=== PATIENT | male | born 1995 | race Two or more races ===

== ENCOUNTER 2016-09-23 14:41 | Emergency (ER) | payer OTHER ==
[~2016-09-23] VITALS: Ht 177.8 cm; Wt 111.8 kg
[2016-09-23 15:47] LABS: HEMATOCRIT 43.5 % (38.0-50.0); MCH 28.8 PG (29.0-34.0); MCHC 34.5 G/DL (30.0-36.0); MCV 83.5 FL (86-99); MEAN PLAT.VOLUME 9.3 uM^3 (9.0-12.4); PLATELET COUNT 370 K/uL (156-360); RBC DIS.WIDTH-CV 12.1 % (11.8-14.6); RBC DIS.WIDTH-SD 36.8 % (39-53); RED BLOOD COUNT 5.21 M/uL (4.00-5.50); WHITE BLOOD COUNT 6.2 K/uL (4.1-10.2)
[2016-09-23 15:55] LABS: CHLORIDE 111 mEq/L (99-109); POTASSIUM 3.7 mEq/L (3.7-5.4); SODIUM 143 mEq/L (136-147)
[2016-09-23 15:57] LABS: GLUCOSE 104 mg/dL (70-99)
[2016-09-23 15:58] LABS: ANION GAP 9 MEQ/L (2-14)
[2016-09-23 15:59] LABS: TOTAL BILIRUBIN 0.5 mg/dL (0.0-1.0)
[2016-09-23 16:00] LABS: ALKALINE PHOSPHATASE 111 IU/L (3-129)
[2016-09-23 16:01] LABS: GFR ESTIMATE (CALCULATED) > 59 mL/min/
[2016-09-23 16:02] LABS: UREA NITROGEN (BUN) 7 mg/dL (9-23)
[2016-09-23 16:04] LABS: LIPASE 82 U/L (1.0-51.0)
[2016-09-23 17:02] VITALS: BP 128/92
== END 2016-09-23 17:05 | disposition home or self-care (01) ==
LOC: EME 14:41
PROVIDERS: Emergency Medicine
DX: Z04.1 Encounter for examination and observation following transport accident (principal); V49.50XA Passenger injured in collision with unspecified motor vehicles in traffic accident, initial encounter; F84.0 Autistic disorder
CPT/HCPCS: 80053; 83690; 85027; 99281; 99283